=== PATIENT | male | born 1970 | race Caucasian/White ===

== ENCOUNTER 2016-10-16 10:56 | Emergency (ER) | payer OTHER ==
--- NOTE | 2016-10-16 11:57 | DIAGNOSTIC IMAGING REPORT ---
PROCEDURE: XR LUMBAR SPINE 2 OR 3 VIEWS INDICATION: TRAUMA/INJURY TECHNIQUE: Three views. COMPARISON: None. FINDINGS: Osseous structures and disc spaces are normal. No evidence of an acute process or fracture. IMPRESSION: 1. Negative lumbar spine.
--- NOTE | 2016-10-16 11:58 | DIAGNOSTIC IMAGING REPORT ---
PROCEDURE: XR CHEST 2 VIEW INDICATION: CHEST PAIN TECHNIQUE: PA and lateral views. COMPARISON: None. FINDINGS: Lungs are clear. Heart and mediastinum are normal. Thorax is normal. IMPRESSION: 1. Negative chest.
--- NOTE | 2016-10-16 12:00 | DIAGNOSTIC IMAGING REPORT ---
PROCEDURE: XR CERVICAL SPINE 2 OR 3 VIEW INDICATION: NECK TRAUMA/INJURY TECHNIQUE: Three views. COMPARISON: None. FINDINGS: Osseous structures and disc spaces are normal. No evidence of an acute process or fracture. IMPRESSION: 1. Negative cervical spine.
--- NOTE | 2016-10-16 12:01 | DIAGNOSTIC IMAGING REPORT ---
PROCEDURE: XR SHOULDER 2 OR MORE VW-LEFT INDICATION: TRAUMA/INJURY TECHNIQUE: Four views. COMPARISON: None. FINDINGS: Osseous structures and joint spaces are normal. IMPRESSION: 1. Normal left shoulder.
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
--- NOTE | 2016-10-16 12:11 | ED ORDER SUMMARY ---
..... Patient: VAZQUEZ KING OrderSheet [facility] VisitID: [id number] [place] [address] 46y, M Registration Date/Time: 10/16/2016 ORDER SHEET Weight: 92.9 kg (stated) Allergies: No Known Drug Allergy GENERAL ORDERS: Cervical Spine 2 or 3V Urgent (10:39 10/16/2016 [facility]) (Ack 11:04 RKaruga) (11:54 DDean R.N.) Lumbar Spine 2 or 3V Urgent (10:39 10/16/2016 [facility]) (Ack 11:04 RKaruga) (11:54 DDean R.N.) Chest 2V (trauma) Urgent (10:39 10/16/2016 [facility]) (Ack 11:04 RKaruga) (11:54 DDean R.N.) Shoulder 2V or more Left Urgent (10:39 10/16/2016 [facility]) [facility] (11:54 DDean R.N.) Ice (10:40 10/16/2016 [facility]) (10:49 DDean R.N.) MEDICATION ORDERS: Ibuprofen PO 600 mg (NOW) (10:40 10/16/2016 [facility]) (Ack 10:42 DDean R.N.) (10:50 DDean R.N.) Zofran ODT PO 4 mg (NOW) (10:40 10/16/2016 [facility]) (Ack 10:42 DDean R.N.) (10:49 DDean R.N.) Hydrocodone-APAP PO 10/650 mg (NOW, HIGH ALERT MEDICATION) (14:08 10/16/2016 DDean R.N. verbal order read back to [facility]) (14:09 DDean R.N.) IV FLUIDS: ORDER SHEET NOTES: [Electronically signed by Micki Kim R.N. (14:32 10/16/2016)] [Electronically signed by Jonh Aguayo DO (14:29 10/17/2016)] [Electronically locked/signed by Micki Kim R.N. (14:32 10/16/2016)]
--- NOTE | 2016-10-16 12:11 | ED ORDER SUMMARY ---
..... Patient: VAZQUEZ KING OrderSheet [facility] VisitID: [id number] [place] [address] 46y, M Registration Date/Time: 10/16/2016 ORDER SHEET Weight: 92.9 kg (stated) Allergies: No Known Drug Allergy GENERAL ORDERS: Cervical Spine 2 or 3V Urgent (10:39 10/16/2016 [facility]) (Ack 11:04 RKaruga) (11:54 DDean R.N.) Lumbar Spine 2 or 3V Urgent (10:39 10/16/2016 [facility]) (Ack 11:04 RKaruga) (11:54 DDean R.N.) Chest 2V (trauma) Urgent (10:39 10/16/2016 [facility]) (Ack 11:04 RKaruga) (11:54 DDean R.N.) Shoulder 2V or more Left Urgent (10:39 10/16/2016 [facility]) [facility] (11:54 DDean R.N.) Ice (10:40 10/16/2016 [facility]) (10:49 DDean R.N.) MEDICATION ORDERS: Ibuprofen PO 600 mg (NOW) (10:40 10/16/2016 [facility]) (Ack 10:42 DDean R.N.) (10:50 DDean R.N.) Zofran ODT PO 4 mg (NOW) (10:40 10/16/2016 [facility]) (Ack 10:42 DDean R.N.) (10:49 DDean R.N.) Hydrocodone-APAP PO 10/650 mg (NOW, HIGH ALERT MEDICATION) (14:08 10/16/2016 DDean R.N. verbal order read back to [facility]) (14:09 DDean R.N.) IV FLUIDS: ORDER SHEET NOTES: [Electronically signed by Micki Kim R.N. (14:32 10/16/2016)] [Electronically signed by Jonh Aguayo DO (14:29 10/17/2016)] [Electronically locked/signed by Micki Kim R.N. (14:32 10/16/2016)]
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
--- NOTE | 2016-10-17 14:30 | ED MAR SUMMARY ---
..... Medication Administration Record [facility] [address] [place] [address] Patient: VAZQUEZ KING Visit ID: [id number] 46y, M Weight: 92.9 kg Height/Length: 70 in BMI: 29.4 ALLERGIES: No Known Drug Allergy Given 10:49 10/16/2016 Micki Kim R.N. Medication Administered: ZOFRAN ODT [PO] (ONDANSETRON), Dose: 4 mg Oral Disintegrating Tablets PO. Medication Ordered: Zofran ODT PO 4 mg (NOW). Given 10:50 10/16/2016 Micki Kim RRadN. Medication Administered: IBUPROFEN [PO], Dose: 600 mg Tablets PO. Medication Ordered: Ibuprofen PO 600 mg (NOW). Given 12:20 10/16/2016 Micki Kim RRadN. Medication Administered: HYDROCODONE-APAP [PO] (HYDROCODONE-ACETAMINOPHEN), Dose: 2 tab 5/325 mg Tablets PO. Medication Ordered: Hydrocodone-APAP PO 10/650 mg (NOW, HIGH ALERT MEDICATION).
--- NOTE | 2016-10-17 14:30 | ED MED RECONCILIATION SUMMARY ---
Patient: VAZQUEZ KING Medication Reconciliation Report [facility] VisitID: [id number] [place] [address] 46y, M Registration Date/Time: 10/16/2016 Weight: 92.9 kg Height/Length: 70 in. BMI: 29.4 ALLERGIES: No Known Drug Allergy The patient's Home Medications are listed below: NONE. The source(s) of the original Home Medication information: Not obtained. The following Medications were given to the patient in the Emergency Department: Zofran ODT [PO] PO 4 mg, administered: 10/16/2016 10:49:00 AM Ibuprofen [PO] PO 600 mg, administered: 10/16/2016 10:50:00 AM Hydrocodone-APAP [PO] PO 2 tab, administered: 10/16/2016 12:20:00 PM The following Medications were prescribed to the patient: Acetaminophen (available over the counter): take according to label instructions. -- Jonh Aguayo DO Hydrocodone/APAP 5mg / 325mg: take 1-2 orally every 8 hours as needed for pain. Dispense ten (10). No refill. -- Jonh Aguayo DO Ibuprofen 600mg tablets: take 1 tablet orally every 8 hours as needed for pain. Dispense thirty (30). No refills. -- Jonh Aguayo DO Flexeril 10 mg: Take 1 orally every 8 hours as needed for muscle spasm. Dispense twenty (20). No refills. Substitution is permissible. -- Jonh Aguayo DO
--- NOTE | 2016-10-17 14:30 | ED MAR SUMMARY ---
..... Medication Administration Record [facility] [address] [place] [address] Patient: VAZQUEZ KING Visit ID: [id number] 46y, M Weight: 92.9 kg Height/Length: 70 in BMI: 29.4 ALLERGIES: No Known Drug Allergy Given 10:49 10/16/2016 Micki Kim R.N. Medication Administered: ZOFRAN ODT [PO] (ONDANSETRON), Dose: 4 mg Oral Disintegrating Tablets PO. Medication Ordered: Zofran ODT PO 4 mg (NOW). Given 10:50 10/16/2016 Micki Kim RRadN. Medication Administered: IBUPROFEN [PO], Dose: 600 mg Tablets PO. Medication Ordered: Ibuprofen PO 600 mg (NOW). Given 12:20 10/16/2016 Micki Kim RRadN. Medication Administered: HYDROCODONE-APAP [PO] (HYDROCODONE-ACETAMINOPHEN), Dose: 2 tab 5/325 mg Tablets PO. Medication Ordered: Hydrocodone-APAP PO 10/650 mg (NOW, HIGH ALERT MEDICATION).
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
--- NOTE | 2016-10-17 14:30 | ED MED RECONCILIATION SUMMARY ---
Patient: VAZQUEZ KING Medication Reconciliation Report [facility] VisitID: [id number] [place] [address] 46y, M Registration Date/Time: 10/16/2016 Weight: 92.9 kg Height/Length: 70 in. BMI: 29.4 ALLERGIES: No Known Drug Allergy The patient's Home Medications are listed below: NONE. The source(s) of the original Home Medication information: Not obtained. The following Medications were given to the patient in the Emergency Department: Zofran ODT [PO] PO 4 mg, administered: 10/16/2016 10:49:00 AM Ibuprofen [PO] PO 600 mg, administered: 10/16/2016 10:50:00 AM Hydrocodone-APAP [PO] PO 2 tab, administered: 10/16/2016 12:20:00 PM The following Medications were prescribed to the patient: Acetaminophen (available over the counter): take according to label instructions. -- Jonh Aguayo DO Hydrocodone/APAP 5mg / 325mg: take 1-2 orally every 8 hours as needed for pain. Dispense ten (10). No refill. -- Jonh Aguayo DO Ibuprofen 600mg tablets: take 1 tablet orally every 8 hours as needed for pain. Dispense thirty (30). No refills. -- Jonh Aguayo DO Flexeril 10 mg: Take 1 orally every 8 hours as needed for muscle spasm. Dispense twenty (20). No refills. Substitution is permissible. -- Jonh Aguayo DO
== END 2016-10-16 12:25 | disposition home or self-care (01) ==
LOC: ED SRH 10:56
DX: S16.1XXA Strain of muscle, fascia and tendon at neck level, initial encounter (principal); S39.012A Strain of muscle, fascia and tendon of lower back, initial encounter; S40.012A Contusion of left shoulder, initial encounter; V04.00XA Pedestrian on foot injured in collision with heavy transport vehicle or bus in nontraffic accident, initial encounter; Y93.9 Activity, unspecified; Y92.9 Unspecified place or not applicable; Y99.9 Unspecified external cause status